=== PATIENT | female | born 1960 | race Caucasian/White ===

== ENCOUNTER 2016-12-19 20:16 | Emergency (ER) | payer OTHER ==
[2016-12-19 21:29] VITALS: BP 145/99; BMI 22.4
--- NOTE | 2016-12-19 23:24 | DR.GENAD ---
HPI - PCP Primary Care Physician: yadi - HPI Comment HPI Comment: PATIENT HAD BM TODAY. NO FEVER. NO DYSURIA. FEELS WEAK. - Complaint/Symptoms Chief Complaint Doctors Comments: ABDOMINAL PAIN WITH NAUSEA AND VOMITING TODAY. Chief Complaint:: pt states" oswald had n/v/d and my belly feels like its full of gas my stomach is swollen and it urts all the way around too my back" - Nurses notes reviewed Nurses Notes Review: Yes - Source History Provided: Patient - Mode of Arrival Mode of Arrival: Ambulatory - Timing Onset of Chief Complaint: 12/18/16 Came on: Suddenly - Duration Duration: Constant Duration: Hours - Severity Severity: Moderate PMH - PMH Past Medical History: Yes Past Medical History: Anxiety, GERD, Hypertension Past Surgical History: Yes Surgical History: Cholecystectomy, Ortho Surgery - Family History History of Family Medical Conditions: Yes Family Medical History: Hypertension - Social History Alcohol Use: Occasionally Do you use any recreational Drugs:: No Lives With: Family Lives Where: Home - infectious screening In the last 2 months have you had wt loss of >10#?: NO Have you had fever, night sweats or hemotysis?: No Have you traveled outside the country in the last 6 months?: No Isolation: Standard ROS - Review of Systems Constitutional: Weakness, Fatigue. negative: Chills, Fever Eyes: No Symptoms Reported ENTM: No Symptoms Reported Respiratoy: No Symptoms Reported Cardiovascular: No Symptoms Reported Gastrointestinal/Abdominal: Abdominal Pain, Nausea, Vomiting Genitourinary: No Symptoms Reported. negative: Dysuria, Frequency, Hematuria Neurological: No Symptoms Reported Musculoskeletal: Back Pain Integumentary: No Symptoms Reported Hematologic/Lymphatic: Easy Bleeding, Easy Bruising Endocrine: No Symptoms Reported All Other Systems: Reviewed and Negative PE - Vital Signs Vitals: Temperature 98.8 F Pulse Rate 86 Respiratory Rate 18 Blood Pressure 145/99 O2 Sat by Pulse Oximetry 99 - General Limitations: No Limitations General Appearance: Alert - Head Head Exam: Normal Inspection - Eyes Eye exam: Normal Appearance - ENT ENT Exam: Normal External Ear Exam External Ear Exam: Normal External Inspection TM/Canal Exam: Bilateral Normal Nose Exam: Normal Nose Exam Mouth Exam: Normal Inspection Throat Exam: Normal Inspection - Neck Neck Exam: Trachea Midline - Chest Chest Inspection: Symmetric Chest Wall Rise - Respiratory Respiratory Exam: Prolonged Expiratory Phase Respiratory Exam: Bilateral Clear to Auscultation - Cardiovascular Cardiovascular Exam: Regular Rate, Normal Rhythm, Normal Heart Sounds - Abdominal Exam Abdominal Exam: Normal Bowel Sounds, Soft, Tenderness Abdominal Tenderness: Diffuse, Moderate - Extremities Extremities Exam: Normal Inspection - Back Back Exam: Normal Inspection - Neurologic Neurological Exam: Alert, Oriented X3 - Psychiatric Psychiatric Exam: Anxious - Skin Skin Exam: Normal Color MDM - Differential Diagnosis Differential Diagnosis: ABDOMINAL PAIN, GASTRITIS, BOWEL OBSTRUCTION Course - Treatment Treatment: MEDS INDICATED. PAIN DECREASING. - Reevaluation 1st: Improved - Education/Counseling Education/Counseling: Patient, Education Educated On: Treatment, Diagnosis, Needs for Follow Up ROR - Labs Reviewed Laboratory Results Reviewed?: Yes Result Diagrams: 12/19/16 23:45 12/19/16 23:45 Laboratory: WBC 6.3 X10^3/uL (3.6-10.0) 12/19/16 23:45 RBC 5.03 X10^6/uL (3.5-5.4) 12/19/16 23:45 Hgb 16.6 g/dL (12.0-16.0) H 12/19/16 23:45 Hct 47.7 % (36.0-47.0) H 12/19/16 23:45 MCV 94.8 fL (80.0-100.0) 12/19/16 23:45 MCH 33.0 pg (27.0-34.0) 12/19/16 23:45 MCHC 34.8 g/dL (33.0-35.0) 12/19/16 23:45 RDW 13.4 % (11.6-16.5) 12/19/16 23:45 Plt Count 210 X10^3/uL (150.0-450.0) 12/19/16 23:45 MPV 7.9 fL (7.4-11.0) 12/19/16 23:45 Neut % 63.9 % (42.0-75.0) 12/19/16 23:45 Lymph % 26.2 % (21.0-51.0) 12/19/16 23:45 Bowman % 7.1 % (0.0-13.0) 12/19/16 23:45 Eos % 1.5 % (0.9-2.9) 12/19/16 23:45 Baso % 1.3 % (0.2-1.0) H 12/19/16 23:45 Neut # 4.0 x10^3/uL (2.2-4.8) 12/19/16 23:45 Lymph # 1.7 X10^3/uL (1.3-2.9) 12/19/16 23:45 Bowman # 0.4 x10^3/uL (0.3-0.8) 12/19/16 23:45 Eos # 0.1 x10^3/uL (0.0-0.2) 12/19/16 23:45 Baso # 0.1 X10^3/uL (0.0-0.1) 12/19/16 23:45 Absolute Nucleated RBC 0.0 /100WBC 12/19/16 23:45 Sodium 134 mmol/L (136-145) L 12/19/16 23:45 Corrected Sodium TNP 12/19/16 23:45 Potassium 3.9 mmol/L (3.5-5.1) 12/19/16 23:45 Chloride 96 mmol/L (98-107) L 12/19/16 23:45 Carbon Dioxide 23.8 mmol/L (21-32) 12/19/16 23:45 BUN 8 mg/dL (7-18) 12/19/16 23:45 Creatinine 0.79 mg/dL (0.55-1.02) 12/19/16 23:45 Est GFR (MDRD) Af Amer > 60 (>60) 12/19/16 23:45 Est GFR (MDRD) Non-Af > 60 (>60) 12/19/16 23:45 Glucose 102 mg/dL (65-99) H 12/19/16 23:45 Calcium 9.6 mg/dL (8.5-10.1) 12/19/16 23:45 Corrected Calcium TNP 12/19/16 23:45 Total Bilirubin 0.80 mg/dL (0.2-1.0) 12/19/16 23:45 AST 31 Units/L (15-37) 12/19/16 23:45 ALT 22 Units/L (12-78) 12/19/16 23:45 Alkaline Phosphatase 106 Units/L (46-116) 12/19/16 23:45 Total Protein 9.3 g/dL (6.4-8.2) H 12/19/16 23:45 Albumin 4.8 g/dL (3.4-5.0) 12/19/16 23:45 Globulin 4.5 g/dL (2.5-4.5) 12/19/16 23:45 Albumin/Globulin Ratio 1.1 Ratio (1.1-2.1) 12/19/16 23:45 Amylase 38 Units/L (25-115) 12/19/16 23:45 Lipase 73 Units/L (73-393) 12/19/16 23:45 Specimen Type Clean catch urine 12/19/16 23:23 Urine Color Yellow (YELLOW) 12/19/16 23:23 Urine Appearance Clear (CLEAR) 12/19/16 23:23 Urine pH 6.0 (5.0 - 8.0) 12/19/16 23:23 Ur Specific [place] 1.015 (1.000-1.030) 12/19/16 23:23 Urine Protein 2+ (NEGATIVE) 12/19/16 23:23 Urine Glucose (UA) Negative (NEGATIVE) 12/19/16 23:23 Urine Ketones 2+ (NEGATIVE) 12/19/16 23:23 Urine Occult Blood 2+ (NEGATIVE) 12/19/16 23:23 Urine Nitrite Negative (NEGATIVE) 12/19/16 23:23 Urine Bilirubin Negative (NEGATIVE) 12/19/16 23:23 Urine Urobilinogen Normal (NORMAL) 12/19/16 23:23 Ur Leukocyte Esterase Negative (NEGATIVE) 12/19/16 23:23 Urine RBC 0-3 /HPF (NEGATIVE) 12/19/16 23:23 Urine WBC None seen /HPF (NEGATIVE) 12/19/16 23:23 Ur Squamous Epith Cells Rare /HPF (NEGATIVE) 12/19/16 23:23 Urine Bacteria Negative /HPF (NEGATIVE) 12/19/16 23:23 Ur Culture Indicated? No/not indicated 12/19/16 23:23 - XRAY XRAY Interpreted by: Radiologist XRAY Findings: REPORT DISCUSS WITH PATIENT. - Diagnosis Discharge Problem: Abdominal pain - Discharge Plan Disposition: 01 HOME, SELF-CARE Condition: Stable Prescriptions: Gi Cocktail [LEVSIN/Maalox/Lidoc Visc (GI COCKTAIL) *] 30 ml PO TID #180 ml - Follow ups/Referrals Follow ups/Referrals: Miguel A Isbell [Primary Care Provider] - 1 day - Instructions Instructions: Abdominal Pain, Adult, [id number] Additional Instructions: RETURN TO ED IF WORSE.
[2016-12-19 23:46] LABS: BILIRUBIN,URINE NEGATIVE (NEGATIVE); BLOOD/HEMOGLOBIN,URINE 2+ (NEGATIVE); GLUCOSE, URINE NEGATIVE (NEGATIVE); KETONES,URINE 2+ (NEGATIVE); LEUKOCYTE ESTERASE ,URINE NEGATIVE (NEGATIVE); NITRITES,URINE NEGATIVE (NEGATIVE); PROTEIN,URINE 2+ (NEGATIVE); UROBILINOGEN,URINE NORMAL (NORMAL)
[2016-12-19 23:56] LABS: APPEARANCE,URINE CLEAR (CLEAR); BACTERIA,URINE NEGATIVE /HPF (NEGATIVE); COLOR,URINE YELLOW (YELLOW); RBC,URINE 0-3 /HPF (NEGATIVE); SQUAMOUS EPITHELIAL CELL,UR RARE /HPF (NEGATIVE)
[2016-12-20 00:02] LABS: BASOPHILS # (AUTO) 0.1 X10^3/uL (0.0-0.1); BASOPHILS % (AUTO) 1.3 % (0.2-1.0); EOSINOPHILS # (AUTO) 0.1 x10^3/uL (0.0-0.2); EOSINOPHILS % (AUTO) 1.5 % (0.9-2.9); HEMATOCRIT 47.7 % (36.0-47.0); HEMOGLOBIN 16.6 g/dL (12.0-16.0); LYMPHOCYTES # (AUTO) 1.7 X10^3/uL (1.3-2.9); LYMPHOCYTES % (AUTO) 26.2 % (21.0-51.0); MEAN CORPUSCULAR HGB CONC 34.8 g/dL (33.0-35.0); MEAN CORPUSCULAR VOLUME 94.8 fL (80.0-100.0); MEAN PLATELET VOLUME 7.9 fL (7.4-11.0); MONOCYTES # (AUTO) 0.4 x10^3/uL (0.3-0.8); MONOCYTES % (AUTO) 7.1 % (0.0-13.0); NEUTROPHILS % (AUTO) 63.9 % (42.0-75.0); PLATELET COUNT 210 X10^3/uL (150.0-450.0); RED BLOOD COUNT 5.03 X10^6/uL (3.5-5.4); RED CELL DISTRIBUTION WIDTH 13.4 % (11.6-16.5); WHITE BLOOD COUNT 6.3 X10^3/uL (3.6-10.0)
[2016-12-20 00:22] LABS: ALANINE AMINOTRANSFERASE 22 Units/L (12-78); ALBUMIN 4.8 g/dL (3.4-5.0); ALKALINE PHOSPHATASE 106 Units/L (46-116); AMYLASE 38 Units/L (25-115); ASPARTATE AMINO TRANSFERASE 31 Units/L (15-37); BLOOD UREA NITROGEN 8 mg/dL (7-18); CALCIUM 9.6 mg/dL (8.5-10.1); CARBON DIOXIDE 23.8 mmol/L (21-32); CHLORIDE 96 mmol/L (98-107); CREATININE 0.79 mg/dL (0.55-1.02); GLUCOSE 102 mg/dL (65-99); LIPASE 73 Units/L (73-393); SODIUM 134 mmol/L (136-145); TOTAL PROTEIN 9.3 g/dL (6.4-8.2); eGFR BLACK RACES > 60 (>60); eGFR NON BLACK RACES > 60 (>60)
--- NOTE | 2016-12-20 00:24 | RAD ---
EXAM: Abdomen series and Chest x-ray INDICATION: Abdominal pain COMPARISION: No priors TECHNIQUE: Abdomen flat and upright, two views and PA view of the chest, single view FINDINGS: The lungs are clear. No pneumothorax or pleural effusion. The cardiac silhouette and mediastinum are normal. The bowel gas pattern is nonobstructed. No abnormal mass effect or calcification. The regio nal skeleton is intact. No free air is seen under the hemidiaphragms. IMPRESSION: Normal abdominal series and chest x-ray. Reported By:
[2016-12-20] MEDS ORDERED: TORADOL 60 MG VIAL IM ONE (00:33)
[2016-12-20] MEDS ORDERED: ZOFRAN TAB 4 MG PO ONE (00:36)
[2016-12-20] MEDS ORDERED: PEPCID TAB 20 MG ONE (00:38)
[2016-12-20] MEDS ORDERED: TORADOL 60 MG VIAL ONE (00:38)
[2016-12-20] MEDS ORDERED: ZOFRAN TAB 4 MG ONE (00:39)
[2016-12-20] MEDS ORDERED: PEPCID TAB 20 MG PO SCH (01:00)
[2016-12-20] MEDS ORDERED: LEVSIN/MAALOX/LIDOC VISC ONE (01:18)
[2016-12-20] MEDS ORDERED: LEVSIN/MAALOX/LIDOC VISC PO ONE (01:18)
== END 2016-12-20 01:34 | disposition home or self-care (01) ==
LOC: ER 21:32
DX: R10.84 Generalized abdominal pain (principal)
CPT/HCPCS: 36415; 74022; 80053; 81001; 82150; 83690; 85025; 96372; 99283; S0181; J1885